=== PATIENT | male | born 1950 | race Caucasian/White ===

== ENCOUNTER 2018-12-27 02:06 | Inpatient (IN) | payer MEDICARE, OTHER ==
[2018-12-27] VITALS (15 sets, daily range): BP systolic 86–130; BP diastolic 42–73
[~2018-12-27] VITALS: Ht 162.6 cm; Wt 68.8 kg
[2018-12-27] MEDS ORDERED: DEXTROSE 50%-WATER 25 GM/50 ML SYRINGE IVP ONE ×3 (02:10→03:00)
[2018-12-27 02:42] LABS: BASOPHILS % (AUTO) 1.2 % (0.0-2.0); EOSINOPHILS % (AUTO) 5.7 % (1.0-6.0); HEMATOCRIT 34.5 % (41-53); HEMOGLOBIN 11.7 g/dL (13.5-17.5); LYMPHOCYTES # (AUTO) 0.8 K/uL (1.0-4.8); LYMPHOCYTES % (AUTO) 15.5 % (22.0-44.0); MEAN CORPUSCULAR HEMOGLOBIN 31.7 pg (26.0-34.0); MEAN CORPUSCULAR HGB CONC 33.8 G/dL (31.0-37.0); MEAN CORPUSCULAR VOLUME 94 fL (80-100); MONOCYTES # (AUTO) 0.5 K/uL (0.1-1.0); MONOCYTES % (AUTO) 10.7 % (2.0-9.0); NEUTROPHILS # (AUTO) 3.4 K/uL (1.8-7.7); NEUTROPHILS % (AUTO) 66.9 % (40.0-70.0); PLATELET COUNT (AUTO) 167 K/uL (150-450); RED BLOOD CELL COUNT(AUTO) 3.68 MIL/uL (4.50-5.90); RED CELL DISTRIBUTION WIDTH 16.3 % (11.5-14.5)
[2018-12-27 02:43] LABS: APPEARANCE,URINE CLEAR (CLEAR); GLUCOSE, URINE (UA) NEGATIVE (NEGATIVE); KETONES,URINE TRACE mg/dL (NEGATIVE); LEUKOCYTE ESTERASE ,URINE NEGATIVE (NEGATIVE); NITRATE,URINE NEGATIVE (NEGATIVE); OCCULT BLOOD,URINE NEGATIVE (NEGATIVE); PROTEIN,URINE SEE CONFIRM (NEGATIVE)
[2018-12-27 02:45] LABS: BILIRUBIN,URINE PRELIM. POSITIVE (NEGATIVE)
[2018-12-27] MEDS ORDERED: PIPERACILLIN/TAZO 3.375 GM/D5W 50 ML IV ONE (02:45)
[2018-12-27] MEDS ORDERED: VANCOMYCIN HCL 1 GM/D5% WATER 200 ML IV ONE (02:45)
[2018-12-27 02:52] LABS: SULFOSALICYLIC ACID,URINE 2+ (Negative)
[2018-12-27 02:54] LABS: INR 1.1 (0.9-1.1); PROTHROMBIN TIME 11.7 SEC (9.4-11.6)
[2018-12-27 02:59] LABS: LACTIC ACID 1.1 mmol/L (0.4-2.0)
[2018-12-27 03:02] LABS: RBC,URINE 0-2 /HPF (0-2)
[2018-12-27 03:03] LABS: BACTERIA,URINE Few /HPF (None Seen); SQUAMOUS EPITHELIAL CELL,UR Rare /LPF (None Seen)
[2018-12-27 03:03] LABS: BILIRUBIN,TOTAL 1.1 mg/dL (0.1-1.0); CALCIUM, TOTAL 8.4 mg/dL (8.8-10.5); CREATININE 3.35 mg/dL (0.60-1.30); POTASSIUM 3.4 mmol/L (3.5-5.1); TOTAL PROTEIN, SERUM 8.5 g/dL (6.4-8.2)
[2018-12-27 03:03] LABS: ABG A-A DIFF O2 245.6 mmHg (10-20.0); ABG CARBOXYHEMOGLOBIN 0.7 % (0.0-1.5); ABG HCO3 31.9 mmol/L (22.0-26.0); ABG METHEMOGLOBIN 0.2 % (0.0-1.5); ABG OXYGEN CONTENT 16.3 mL/dL (15.0-23.0); ABG OXYGEN SATURATION 99.5 % (95.0-98.0); ABG OXYHEMOGLOBIN 98.6 % (94.0-100.0); ABG PCO2 42 mmHg (35-45); ABG TOTAL HEMOGLOBIN 11.2 G/dL (12.0-18.0); PO2, ARTERIAL BG 284.1 mmHg (79.0-87.0); SOURCE, BLOOD GAS ARTERIAL; TEMPERATURE, FAHRENHEIT, BG 95.3 FAHREN (96.0-98.6)
[2018-12-27 03:05] LABS: O2 DEVICE,BLOOD GAS BIPAP (ROOM AIR); SITE, BLOOD GAS RT RADIAL
[2018-12-27 03:25] LABS: GLUCOSE,POINT OF CARE 195 MG/DL (70-110)
[2018-12-27 03:25] LABS: GLUCOSE,POINT OF CARE 303 MG/DL (70-110)
[2018-12-27 03:25] LABS: GLUCOSE,POINT OF CARE 154 MG/DL (70-110)
[2018-12-27] MEDS ORDERED: ONDANSETRON HCL 4 MG/2 ML VIAL IVP PRN (04:30)
[2018-12-27] MEDS ORDERED: ACETAMINOPHEN 325 MG TABLET PO PRN (04:30)
[2018-12-27] MEDS ORDERED: 0.9% SODIUM CHLORIDE 10 ML SYRINGE IVP PRN (04:30)
[2018-12-27] MEDS ORDERED: DEXTROSE 50%-WATER 25 GM/50 ML SYRINGE IVP PRN (06:30)
[2018-12-27] MEDS ORDERED: BISACODYL 10 MG RECTAL RECTAL SUPPOSITORY PR PRN (06:30)
[2018-12-27 06:41] LABS: GLUCOSE,POINT OF CARE 154 MG/DL (70-110)
[2018-12-27] MEDS: DOCUSATE SODIUM 100 MG CAPSULE PO SCH ×2 (09:00→21:02)
[2018-12-27] MEDS: FAMOTIDINE 20 MG TABLET PO SCH (09:51)
[2018-12-27] MEDS: HEPARIN SODIUM,PORCINE 5,000 UNITS/ML VIAL SQ SCH ×2 (09:51→21:02)
[2018-12-27] MEDS ORDERED: SODIUM CHLORIDE 0.9% 500 ML IV ONE ×2 (11:30→15:30)
[2018-12-27] MEDS: INSULIN LISPRO 100 UNITS/ML SQ PRN (12:49)
[2018-12-27] MEDS ORDERED: TRAZ-252 PO (15:33)
[2018-12-27] MEDS ORDERED: SACU1TAB PO (15:33)
[2018-12-27] MEDS ORDERED: SODI650T PO (15:33)
[2018-12-27] MEDS ORDERED: LEVO50 PO (15:33)
[2018-12-27] MEDS ORDERED: ASPI81TA39 PO (15:33)
[2018-12-27] MEDS ORDERED: OMEP20 PO (15:33)
[2018-12-27] MEDS: MIDODRINE HCL 5 MG TABLET PO SCH (16:18)
[2018-12-27] MEDS ORDERED: IOVERSOL 320 MG/ML 100 ML VIAL ONE (22:22)
[2018-12-27] MEDS ORDERED: SODIUM CHLORIDE 0.9% 100 ML ONE (22:23)
[2018-12-27] MEDS ORDERED: IOVERSOL 350 MG/ML 100 ML VIAL ONE (23:10)
[2018-12-27 23:31] LABS: GLUCOMETER DEV NAME(LOC) 5N.1; GLUCOSE,POINT OF CARE 177 MG/DL (70-110)
[2018-12-27 23:31] LABS: GLUCOMETER DEV NAME(LOC) 5N.1; GLUCOSE,POINT OF CARE 143 MG/DL (70-110)
[2018-12-27 23:31] LABS: GLUCOMETER DEV NAME(LOC) 5N.1; GLUCOSE,POINT OF CARE 157 MG/DL (70-110)
[2018-12-28] MEDS: MIDODRINE HCL 5 MG TABLET PO SCH ×3 (00:26→15:20)
[2018-12-28 04:36] VITALS: BP 119/58
[2018-12-28 07:52] VITALS: BP 103/47
[2018-12-28] MEDS: FAMOTIDINE 20 MG TABLET PO SCH (09:32)
[2018-12-28] MEDS: HEPARIN SODIUM,PORCINE 5,000 UNITS/ML VIAL SQ SCH ×2 (09:32→21:25)
[2018-12-28] MEDS: DOCUSATE SODIUM 100 MG CAPSULE PO SCH ×2 (09:33→21:27)
[2018-12-28 12:00] VITALS: BP 115/51
[2018-12-28 12:13] LABS: BASOPHILS % (AUTO) 0.9 % (0.0-2.0); EOSINOPHILS % (AUTO) 4.4 % (1.0-6.0); HEMATOCRIT 26.9 % (41-53); LYMPHOCYTES # (AUTO) 0.7 K/uL (1.0-4.8); LYMPHOCYTES % (AUTO) 10.3 % (22.0-44.0); MEAN CORPUSCULAR HEMOGLOBIN 31.7 pg (26.0-34.0); MEAN CORPUSCULAR HGB CONC 33.4 G/dL (31.0-37.0); MEAN CORPUSCULAR VOLUME 95 fL (80-100); MONOCYTES # (AUTO) 0.5 K/uL (0.1-1.0); NEUTROPHILS # (AUTO) 5.5 K/uL (1.8-7.7); NEUTROPHILS % (AUTO) 77.4 % (40.0-70.0); PLATELET COUNT (AUTO) 128 K/uL (150-450); RED BLOOD CELL COUNT(AUTO) 2.83 MIL/uL (4.50-5.90); RED CELL DISTRIBUTION WIDTH 16.3 % (11.5-14.5)
[2018-12-28 12:33] LABS: ALBUMIN 2.1 g/dL (3.4-5.0); CALCIUM, TOTAL 7.9 mg/dL (8.8-10.5); CREATININE 4.94 mg/dL (0.60-1.30); PHOSPHORUS 4.1 mg/dL (2.5-4.9); POTASSIUM 4.2 mmol/L (3.5-5.1)
[2018-12-28 15:53] VITALS: BP 122/63
[2018-12-28] MEDS: INSULIN LISPRO 100 UNITS/ML SQ PRN ×2 (17:44→21:34)
[2018-12-28 17:58] LABS: GLUCOMETER DEV NAME(LOC) 5S.1; GLUCOSE,POINT OF CARE 117 MG/DL (70-110)
[2018-12-28 20:35] VITALS: BP 125/54
[2018-12-29 00:21] VITALS: BP 113/53
[2018-12-29] MEDS: MIDODRINE HCL 5 MG TABLET PO SCH ×3 (00:32→15:21)
[2018-12-29 04:43] VITALS: BP 131/69
[2018-12-29 06:30] LABS: GLUCOMETER DEV NAME(LOC) 5N.2; GLUCOSE,POINT OF CARE 132 MG/DL (70-110)
[2018-12-29 06:30] LABS: GLUCOMETER DEV NAME(LOC) 5N.2; GLUCOSE,POINT OF CARE 83 MG/DL (70-110)
[2018-12-29 06:36] LABS: GLUCOMETER DEV NAME(LOC) 5N.1; GLUCOSE,POINT OF CARE 93 MG/DL (70-110)
[2018-12-29 07:37] VITALS: BP 126/53
[2018-12-29 07:46] LABS: BASOPHILS % (AUTO) 0.7 % (0.0-2.0); EOSINOPHILS % (AUTO) 4.6 % (1.0-6.0); HEMATOCRIT 26.9 % (41-53); HEMOGLOBIN 8.9 g/dL (13.5-17.5); LYMPHOCYTES # (AUTO) 0.5 K/uL (1.0-4.8); LYMPHOCYTES % (AUTO) 8.7 % (22.0-44.0); MEAN CORPUSCULAR HEMOGLOBIN 31.4 pg (26.0-34.0); MEAN CORPUSCULAR HGB CONC 32.9 G/dL (31.0-37.0); MEAN CORPUSCULAR VOLUME 96 fL (80-100); MONOCYTES # (AUTO) 0.5 K/uL (0.1-1.0); MONOCYTES % (AUTO) 9.2 % (2.0-9.0); NEUTROPHILS # (AUTO) 4.3 K/uL (1.8-7.7); NEUTROPHILS % (AUTO) 76.8 % (40.0-70.0); PLATELET COUNT (AUTO) 135 K/uL (150-450); RED BLOOD CELL COUNT(AUTO) 2.82 MIL/uL (4.50-5.90); RED CELL DISTRIBUTION WIDTH 16.4 % (11.5-14.5)
[2018-12-29 08:03] LABS: ALBUMIN 2.2 g/dL (3.4-5.0); CALCIUM, TOTAL 8.4 mg/dL (8.8-10.5); CREATININE 3.33 mg/dL (0.60-1.30); PHOSPHORUS 3.8 mg/dL (2.5-4.9); POTASSIUM 4.6 mmol/L (3.5-5.1)
[2018-12-29] MEDS: HEPARIN SODIUM,PORCINE 5,000 UNITS/ML VIAL SQ SCH ×2 (09:13→20:08)
[2018-12-29] MEDS: FAMOTIDINE 20 MG TABLET PO SCH (09:13)
[2018-12-29] MEDS: DOCUSATE SODIUM 100 MG CAPSULE PO SCH ×2 (09:13→20:08)
[2018-12-29 17:40] LABS: GLUCOMETER DEV NAME(LOC) 5S.1; GLUCOSE,POINT OF CARE 137 MG/DL (70-110)
[2018-12-29 20:06] VITALS: BP 135/69
[2018-12-29] MEDS: INSULIN LISPRO 100 UNITS/ML SQ PRN (22:26)
[2018-12-30] VITALS (7 sets, daily range): BP systolic 102–128; BP diastolic 52–67
[2018-12-30 00:21] LABS: GLUCOMETER DEV NAME(LOC) 5N.1; GLUCOSE,POINT OF CARE 237 MG/DL (70-110)
[2018-12-30] MEDS: FAMOTIDINE 20 MG TABLET PO SCH (08:36)
[2018-12-30] MEDS: HEPARIN SODIUM,PORCINE 5,000 UNITS/ML VIAL SQ SCH ×2 (08:36→20:08)
[2018-12-30] MEDS: DOCUSATE SODIUM 100 MG CAPSULE PO SCH ×2 (08:36→20:08)
[2018-12-30] MEDS: CARVEDILOL 3.125 MG TABLET PO SCH ×2 (15:28→20:08)
[2018-12-30] MEDS: INSULIN LISPRO 100 UNITS/ML SQ PRN (20:10)
[2018-12-31 04:49] VITALS: BP 119/64
[2018-12-31 05:53] LABS: GLUCOMETER DEV NAME(LOC) 5N.2; GLUCOSE,POINT OF CARE 90 MG/DL (70-110)
[2018-12-31 07:44] VITALS: BP 124/65
[2018-12-31] MEDS: CARVEDILOL 3.125 MG TABLET PO SCH ×2 (09:00→20:07)
[2018-12-31] MEDS: HEPARIN SODIUM,PORCINE 5,000 UNITS/ML VIAL SQ SCH ×2 (10:54→20:07)
[2018-12-31] MEDS: DOCUSATE SODIUM 100 MG CAPSULE PO SCH ×2 (10:54→20:07)
[2018-12-31] MEDS: FAMOTIDINE 20 MG TABLET PO SCH (10:54)
[2018-12-31 11:22] VITALS: BP 132/68
[2018-12-31 11:49] LABS: GLUCOMETER DEV NAME(LOC) 5S.1; GLUCOSE,POINT OF CARE 166 MG/DL (70-110)
[2018-12-31 11:49] LABS: GLUCOMETER DEV NAME(LOC) 5S.1; GLUCOSE,POINT OF CARE 105 MG/DL (70-110)
[2018-12-31] MEDS ORDERED: SODIUM CHLORIDE 0.9% 2,000 ML IV ONE (14:09)
[2018-12-31 15:10] VITALS: BP 122/71
[2018-12-31 19:57] LABS: GLUCOMETER DEV NAME(LOC) 5N.2; GLUCOSE,POINT OF CARE 96 MG/DL (70-110)
[2018-12-31 19:57] LABS: GLUCOMETER DEV NAME(LOC) 5N.2; GLUCOSE,POINT OF CARE 125 MG/DL (70-110)
[2018-12-31 19:58] VITALS: BP 128/67
[2018-12-31 21:38] LABS: GLUCOMETER DEV NAME(LOC) 5S.2A; GLUCOSE,POINT OF CARE 204 MG/DL (70-110)
[2018-12-31 23:42] VITALS: BP 115/59
[2019-01-01 03:31] LABS: GLUCOMETER DEV NAME(LOC) 5N.1; GLUCOSE,POINT OF CARE 114 MG/DL (70-110)
[2019-01-01 03:31] LABS: GLUCOMETER DEV NAME(LOC) 5N.1; GLUCOSE,POINT OF CARE 87 MG/DL (70-110)
[2019-01-01 03:31] LABS: GLUCOMETER DEV NAME(LOC) 5N.1; GLUCOSE,POINT OF CARE 137 MG/DL (70-110)
[2019-01-01 05:07] VITALS: BP 112/60
[2019-01-01 07:23] LABS: BASOPHILS % (AUTO) 1.1 % (0.0-2.0); EOSINOPHILS % (AUTO) 4.4 % (1.0-6.0); HEMATOCRIT 26.4 % (41-53); HEMOGLOBIN 8.7 g/dL (13.5-17.5); LYMPHOCYTES # (AUTO) 0.4 K/uL (1.0-4.8); LYMPHOCYTES % (AUTO) 12.4 % (22.0-44.0); MEAN CORPUSCULAR HEMOGLOBIN 31.6 pg (26.0-34.0); MEAN CORPUSCULAR HGB CONC 33.1 G/dL (31.0-37.0); MEAN CORPUSCULAR VOLUME 95 fL (80-100); MONOCYTES # (AUTO) 0.4 K/uL (0.1-1.0); MONOCYTES % (AUTO) 11.1 % (2.0-9.0); NEUTROPHILS # (AUTO) 2.3 K/uL (1.8-7.7); PLATELET COUNT (AUTO) 128 K/uL (150-450); RED BLOOD CELL COUNT(AUTO) 2.77 MIL/uL (4.50-5.90)
[2019-01-01 07:39] LABS: CALCIUM, TOTAL 8.3 mg/dL (8.8-10.5); CREATININE 3.56 mg/dL (0.60-1.30); POTASSIUM 4.8 mmol/L (3.5-5.1)
[2019-01-01 08:24] VITALS: BP 140/81
[2019-01-01] MEDS: HEPARIN SODIUM,PORCINE 5,000 UNITS/ML VIAL SQ SCH ×2 (09:00→20:17)
[2019-01-01] MEDS ORDERED: EPOETIN ALFA 10,000 UNITS/ML VIAL SQ ONE (09:00)
[2019-01-01] MEDS: DOCUSATE SODIUM 100 MG CAPSULE PO SCH ×2 (09:09→20:17)
[2019-01-01] MEDS: CARVEDILOL 3.125 MG TABLET PO SCH ×2 (09:12→20:17)
[2019-01-01] MEDS: FAMOTIDINE 20 MG TABLET PO SCH (09:12)
[2019-01-01 09:26] LABS: GLUCOMETER DEV NAME(LOC) 5N.2; GLUCOSE,POINT OF CARE 91 MG/DL (70-110)
[2019-01-01 11:59] VITALS: BP 120/78
[2019-01-01 20:11] VITALS: BP 119/58
[2019-01-01] MEDS: INSULIN LISPRO 100 UNITS/ML SQ PRN (20:15)
[2019-01-01 21:11] LABS: GLUCOMETER DEV NAME(LOC) 5N.2; GLUCOSE,POINT OF CARE 125 MG/DL (70-110)
[2019-01-02 00:01] LABS: GLUCOMETER DEV NAME(LOC) 5S.1; GLUCOSE,POINT OF CARE 104 MG/DL (70-110)
[2019-01-02 00:01] LABS: GLUCOMETER DEV NAME(LOC) 5N.1; GLUCOSE,POINT OF CARE 200 MG/DL (70-110)
[2019-01-02 00:11] VITALS: BP 112/54
[2019-01-02 05:03] VITALS: BP 121/59
[2019-01-02 06:52] LABS: BASOPHILS % (AUTO) 1.3 % (0.0-2.0); EOSINOPHILS % (AUTO) 4.9 % (1.0-6.0); HEMATOCRIT 27.8 % (41-53); HEMOGLOBIN 9.2 g/dL (13.5-17.5); LYMPHOCYTES # (AUTO) 0.5 K/uL (1.0-4.8); LYMPHOCYTES % (AUTO) 14.7 % (22.0-44.0); MEAN CORPUSCULAR HEMOGLOBIN 31.6 pg (26.0-34.0); MEAN CORPUSCULAR HGB CONC 32.9 G/dL (31.0-37.0); MEAN CORPUSCULAR VOLUME 96 fL (80-100); MONOCYTES # (AUTO) 0.4 K/uL (0.1-1.0); MONOCYTES % (AUTO) 11.5 % (2.0-9.0); NEUTROPHILS # (AUTO) 2.2 K/uL (1.8-7.7); NEUTROPHILS % (AUTO) 67.6 % (40.0-70.0); PLATELET COUNT (AUTO) 130 K/uL (150-450); RED CELL DISTRIBUTION WIDTH 16.1 % (11.5-14.5)
[2019-01-02 07:08] LABS: ALBUMIN 2.4 g/dL (3.4-5.0); CALCIUM, TOTAL 8.6 mg/dL (8.8-10.5); CREATININE 5.17 mg/dL (0.60-1.30); PHOSPHORUS 4.4 mg/dL (2.5-4.9); THYROID STIMULATING HORMONE 6.93 uIU/mL (0.36-3.74)
[2019-01-02 07:19] VITALS: BP 127/69
[2019-01-02] MEDS: DOCUSATE SODIUM 100 MG CAPSULE PO SCH ×2 (09:00→21:00)
[2019-01-02] MEDS: HEPARIN SODIUM,PORCINE 5,000 UNITS/ML VIAL SQ SCH ×2 (09:00→21:00)
[2019-01-02] MEDS: FAMOTIDINE 20 MG TABLET PO SCH (10:01)
[2019-01-02 11:24] VITALS: BP 129/66
[2019-01-02] MEDS: CARVEDILOL 3.125 MG TABLET PO SCH ×2 (11:42→21:29)
[2019-01-02 15:06] VITALS: BP 133/69
[2019-01-02] MEDS: INSULIN LISPRO 100 UNITS/ML SQ PRN ×2 (18:35→21:31)
[2019-01-02 19:46] LABS: GLUCOMETER DEV NAME(LOC) 5N.1; GLUCOSE,POINT OF CARE 144 MG/DL (70-110)
[2019-01-02 19:46] LABS: GLUCOMETER DEV NAME(LOC) 5N.1; GLUCOSE,POINT OF CARE 125 MG/DL (70-110)
[2019-01-02 20:21] LABS: GLUCOMETER DEV NAME(LOC) 5S.2A; GLUCOSE,POINT OF CARE 79 MG/DL (70-110)
[2019-01-02 20:59] VITALS: BP 119/57
[2019-01-03 00:37] VITALS: BP 118/68
[2019-01-03 04:10] VITALS: BP 125/60
[2019-01-03 05:46] LABS: GLUCOMETER DEV NAME(LOC) 5S.2A; GLUCOSE,POINT OF CARE 158 MG/DL (70-110)
[2019-01-03 06:58] LABS: BASOPHILS % (AUTO) 0.8 % (0.0-2.0); EOSINOPHILS % (AUTO) 3.6 % (1.0-6.0); HEMOGLOBIN 9.1 g/dL (13.5-17.5); LYMPHOCYTES # (AUTO) 0.4 K/uL (1.0-4.8); LYMPHOCYTES % (AUTO) 10.7 % (22.0-44.0); MEAN CORPUSCULAR HEMOGLOBIN 31.4 pg (26.0-34.0); MEAN CORPUSCULAR HGB CONC 32.6 G/dL (31.0-37.0); MEAN CORPUSCULAR VOLUME 96 fL (80-100); MONOCYTES # (AUTO) 0.4 K/uL (0.1-1.0); MONOCYTES % (AUTO) 11.5 % (2.0-9.0); NEUTROPHILS # (AUTO) 2.8 K/uL (1.8-7.7); NEUTROPHILS % (AUTO) 73.4 % (40.0-70.0); PLATELET COUNT (AUTO) 145 K/uL (150-450); RED CELL DISTRIBUTION WIDTH 16.4 % (11.5-14.5)
[2019-01-03 07:33] LABS: CALCIUM, TOTAL 8.8 mg/dL (8.8-10.5); CREATININE 3.78 mg/dL (0.60-1.30); MAGNESIUM 1.5 mg/dL (1.80-2.40); PHOSPHORUS 3.4 mg/dL (2.5-4.9); POTASSIUM 4.7 mmol/L (3.5-5.1); THYROID STIMULATING HORMONE 6.11 uIU/mL (0.36-3.74); TOTAL PROTEIN, SERUM 7.1 g/dL (6.4-8.2)
[2019-01-03 08:51] VITALS: BP 131/72
[2019-01-03] MEDS ORDERED: MAGNESIUM OXIDE 400 MG TABLET PO ONE (09:00)
[2019-01-03] MEDS: CARVEDILOL 3.125 MG TABLET PO SCH ×2 (09:07→20:33)
[2019-01-03] MEDS: FAMOTIDINE 20 MG TABLET PO SCH (09:07)
[2019-01-03] MEDS: HEPARIN SODIUM,PORCINE 5,000 UNITS/ML VIAL SQ SCH ×2 (09:07→20:33)
[2019-01-03] MEDS: DOCUSATE SODIUM 100 MG CAPSULE PO SCH ×2 (09:07→20:34)
[2019-01-03] MEDS: EPOETIN ALFA 10,000 UNITS/ML VIAL SQ SCH (09:09)
[2019-01-03 09:50] LABS: GLUCOMETER DEV NAME(LOC) 5S.1; GLUCOSE,POINT OF CARE 116 MG/DL (70-110)
[2019-01-03 11:33] LABS: SPECIMENTYPE,BODY FLUID PLEURAL
[2019-01-03 12:48] VITALS: BP 125/62
[2019-01-03 13:06] LABS: APPEARANCE,UNSPUN,BODY FLUID TURBID (CLEAR)
[2019-01-03 13:07] LABS: APPEARANCE,SPUN,BODY FLUID CLEAR (CLEAR); COLOR,BODY FLUID RED (LT YELLOW); TOTAL VOLUME,BODY FLUID 300 mL; WBC, BODY FLUID 23 /cu. mm.
[2019-01-03 13:09] LABS: BASOPHILS,BODY FLUID 0 %; EOSINOPHILS,BF (ANAL) 0 %; LYMPHOCYTES,BODY FLUID 75 %; MONOCYTES,BODY FLUID 0 %; NEUTROPHILS,BODY FLUID 25 %
[2019-01-03 13:11] LABS: ABG CARBOXYHEMOGLOBIN 0.4 % (0.0-1.5); ABG HCO3 23.2 mmol/L (22.0-26.0); ABG METHEMOGLOBIN 0.3 % (0.0-1.5); ABG OXYGEN SATURATION 98.7 % (95.0-98.0); ABG PCO2 34 mmHg (35-45); ABG PH 7.432 (7.35-7.450); O2 DEVICE,BLOOD GAS CANNULA (ROOM AIR); PO2, ARTERIAL BG 120.5 mmHg (79.0-87.0); SITE, BLOOD GAS RT RADIAL; SOURCE, BLOOD GAS ARTERIAL; TEMPERATURE, FAHRENHEIT, BG 97.9 FAHREN (96.0-98.6)
[2019-01-03 13:11] LABS: PH, BODY FLUID 9
[2019-01-03 15:54] VITALS: BP 122/61
[2019-01-03] MEDS ORDERED: ONDANSETRON HCL 4 MG/2 ML VIAL IVP PRN (19:45)
[2019-01-03 20:13] VITALS: BP 122/60
[2019-01-03] MEDS: DEXTRAN 70 0.1%/HYPROMELL 0.3% 0.9 ML OPHTHALMIC SOLUTION [PF] OU SCH (20:33)
[2019-01-03] MEDS: INSULIN LISPRO 100 UNITS/ML SQ PRN (20:52)
[2019-01-04] VITALS (7 sets, daily range): BP systolic 99–128; BP diastolic 49–65
[2019-01-04] MEDS ORDERED: SODIUM CHLORIDE 0.9% 2,000 ML IV ONE (06:37)
[2019-01-04] MEDS: DOCUSATE SODIUM 100 MG CAPSULE PO SCH ×2 (09:00→20:59)
[2019-01-04] MEDS: CARVEDILOL 3.125 MG TABLET PO SCH ×2 (09:00→20:49)
[2019-01-04] MEDS: FAMOTIDINE 20 MG TABLET PO SCH (09:05)
[2019-01-04] MEDS: DEXTRAN 70 0.1%/HYPROMELL 0.3% 0.9 ML OPHTHALMIC SOLUTION [PF] OU SCH ×2 (09:05→20:50)
[2019-01-04] MEDS: HEPARIN SODIUM,PORCINE 5,000 UNITS/ML VIAL SQ SCH ×2 (10:26→20:50)
[2019-01-04 12:12] LABS: GLUCOMETER DEV NAME(LOC) 5S.1; GLUCOSE,POINT OF CARE 107 MG/DL (70-110)
[2019-01-04 12:12] LABS: GLUCOMETER DEV NAME(LOC) 5S.1; GLUCOSE,POINT OF CARE 115 MG/DL (70-110)
[2019-01-04 12:12] LABS: GLUCOMETER DEV NAME(LOC) 5S.1; GLUCOSE,POINT OF CARE 93 MG/DL (70-110)
[2019-01-04 12:20] LABS: GLUCOMETER DEV NAME(LOC) 5S.2A; GLUCOSE,POINT OF CARE 114 MG/DL (70-110)
[2019-01-04 12:20] LABS: GLUCOMETER DEV NAME(LOC) 5S.2A; GLUCOSE,POINT OF CARE 175 MG/DL (70-110)
[2019-01-04] MEDS: INSULIN LISPRO 100 UNITS/ML SQ PRN (20:59)
[2019-01-05 04:53] VITALS: BP 115/57
[2019-01-05] MEDS: INSULIN LISPRO 100 UNITS/ML SQ PRN ×2 (06:12→13:15)
[2019-01-05 07:47] LABS: BASOPHILS % (AUTO) 1.2 % (0.0-2.0); EOSINOPHILS % (AUTO) 4.8 % (1.0-6.0); HEMOGLOBIN 10.5 g/dL (13.5-17.5); LYMPHOCYTES # (AUTO) 0.5 K/uL (1.0-4.8); LYMPHOCYTES % (AUTO) 14.7 % (22.0-44.0); MEAN CORPUSCULAR HEMOGLOBIN 32.8 pg (26.0-34.0); MEAN CORPUSCULAR HGB CONC 33.9 G/dL (31.0-37.0); MEAN CORPUSCULAR VOLUME 97 fL (80-100); MONOCYTES # (AUTO) 0.3 K/uL (0.1-1.0); MONOCYTES % (AUTO) 8.2 % (2.0-9.0); NEUTROPHILS # (AUTO) 2.6 K/uL (1.8-7.7); NEUTROPHILS % (AUTO) 71.1 % (40.0-70.0); PLATELET COUNT (AUTO) 158 K/uL (150-450); RED BLOOD CELL COUNT(AUTO) 3.21 MIL/uL (4.50-5.90); RED CELL DISTRIBUTION WIDTH 16.3 % (11.5-14.5)
[2019-01-05 08:11] VITALS: BP 129/55
[2019-01-05] MEDS: DOCUSATE SODIUM 100 MG CAPSULE PO SCH ×2 (09:00→21:00)
[2019-01-05] MEDS: FAMOTIDINE 20 MG TABLET PO SCH (09:21)
[2019-01-05] MEDS: HEPARIN SODIUM,PORCINE 5,000 UNITS/ML VIAL SQ SCH ×2 (09:21→21:00)
[2019-01-05] MEDS: CARVEDILOL 3.125 MG TABLET PO SCH ×2 (09:21→21:33)
[2019-01-05] MEDS: DEXTRAN 70 0.1%/HYPROMELL 0.3% 0.9 ML OPHTHALMIC SOLUTION [PF] OU SCH ×2 (09:21→21:33)
[2019-01-05] MEDS: ASPIRIN 81 MG CHEWABLE TABLET PO SCH (09:25)
[2019-01-05 12:13] VITALS: BP 125/60
[2019-01-05 16:30] VITALS: BP 103/52
[2019-01-05 16:41] LABS: GLUCOMETER DEV NAME(LOC) 5S.1; GLUCOSE,POINT OF CARE 189 MG/DL (70-110)
[2019-01-05 16:41] LABS: GLUCOMETER DEV NAME(LOC) 5S.1; GLUCOSE,POINT OF CARE 117 MG/DL (70-110)
[2019-01-05 16:41] LABS: GLUCOMETER DEV NAME(LOC) 5S.1; GLUCOSE,POINT OF CARE 158 MG/DL (70-110)
[2019-01-05 16:41] LABS: GLUCOMETER DEV NAME(LOC) 5S.1; GLUCOSE,POINT OF CARE 156 MG/DL (70-110)
[2019-01-05 19:43] VITALS: BP 117/55
[2019-01-05] MEDS: ATORVASTATIN CALCIUM 20 MG TABLET PO SCH (21:33)
[2019-01-05 23:30] LABS: GLUCOMETER DEV NAME(LOC) 5S.1; GLUCOSE,POINT OF CARE 65 MG/DL (70-110)
[2019-01-06 00:10] VITALS: BP 120/59
[2019-01-06 05:10] VITALS: BP 125/58
[2019-01-06] MEDS: LEVOTHYROXINE SODIUM 50 MCG TABLET PO SCH (06:30)
[2019-01-06 06:35] LABS: GLUCOMETER DEV NAME(LOC) 5S.1; GLUCOSE,POINT OF CARE 173 MG/DL (70-110)
[2019-01-06 06:43] LABS: BASOPHILS % (AUTO) 1.2 % (0.0-2.0); EOSINOPHILS % (AUTO) 5.5 % (1.0-6.0); HEMATOCRIT 31.6 % (41-53); HEMOGLOBIN 10.4 g/dL (13.5-17.5); LYMPHOCYTES # (AUTO) 0.4 K/uL (1.0-4.8); LYMPHOCYTES % (AUTO) 11.9 % (22.0-44.0); MEAN CORPUSCULAR HEMOGLOBIN 32.1 pg (26.0-34.0); MEAN CORPUSCULAR VOLUME 97 fL (80-100); MONOCYTES # (AUTO) 0.3 K/uL (0.1-1.0); MONOCYTES % (AUTO) 7.8 % (2.0-9.0); NEUTROPHILS # (AUTO) 2.8 K/uL (1.8-7.7); NEUTROPHILS % (AUTO) 73.6 % (40.0-70.0); PLATELET COUNT (AUTO) 157 K/uL (150-450); RED BLOOD CELL COUNT(AUTO) 3.26 MIL/uL (4.50-5.90); RED CELL DISTRIBUTION WIDTH 16.5 % (11.5-14.5)
[2019-01-06 07:09] LABS: ALBUMIN 2.6 g/dL (3.4-5.0); BILIRUBIN,TOTAL 0.6 mg/dL (0.1-1.0); CALCIUM, TOTAL 8.9 mg/dL (8.8-10.5); CREATININE 5.11 mg/dL (0.60-1.30); POTASSIUM 4.2 mmol/L (3.5-5.1); TOTAL PROTEIN, SERUM 7.5 g/dL (6.4-8.2)
[2019-01-06 07:39] VITALS: BP 143/64
[2019-01-06] MEDS ORDERED: SODIUM CHLORIDE 0.9% 500 ML IV ONE (08:57)
[2019-01-06] MEDS: ASPIRIN 81 MG CHEWABLE TABLET PO SCH (09:00)
[2019-01-06] MEDS: DEXTRAN 70 0.1%/HYPROMELL 0.3% 0.9 ML OPHTHALMIC SOLUTION [PF] OU SCH ×2 (09:00→23:33)
[2019-01-06] MEDS: DOCUSATE SODIUM 100 MG CAPSULE PO SCH ×3 (09:00→21:10)
[2019-01-06] MEDS: FAMOTIDINE 20 MG TABLET PO SCH (09:00)
[2019-01-06] MEDS ORDERED: SODIUM CHLORIDE 0.9% 1,000 ML IV ONE (09:00)
[2019-01-06] MEDS: EPOETIN ALFA 10,000 UNITS/ML VIAL SQ SCH (09:00)
[2019-01-06] MEDS: CARVEDILOL 3.125 MG TABLET PO SCH ×2 (09:00→21:10)
[2019-01-06] MEDS ORDERED: BUPIVACAINE HCL/PF 0.25% 30 ML VIAL ONE (09:34)
[2019-01-06] MEDS ORDERED: SODIUM CHLORIDE 0.9% 100 ML ONE (09:36)
[2019-01-06 09:43] LABS: ABG A-A DIFF O2 38.8 mmHg (10-20.0); ABG BASE EXCESS 2.5 mmol/L (-2.0-3.0); ABG CARBOXYHEMOGLOBIN 0.4 % (0.0-1.5); ABG HCO3 26.2 mmol/L (22.0-26.0); ABG METHEMOGLOBIN 0.2 % (0.0-1.5); ABG OXYGEN CONTENT 16.3 mL/dL (15.0-23.0); ABG OXYGEN SATURATION 97.9 % (95.0-98.0); ABG OXYHEMOGLOBIN 97.3 % (94.0-100.0); ABG PCO2 47 mmHg (35-45); ABG PH 7.385 (7.35-7.450); ABG TOTAL HEMOGLOBIN 11.8 G/dL (12.0-18.0); PO2, ARTERIAL BG 105.4 mmHg (79.0-87.0); SOURCE, BLOOD GAS ARTERIAL; TEMPERATURE, FAHRENHEIT, BG 98.6 FAHREN (96.0-98.6)
[2019-01-06] MEDS ORDERED: DOXYCYCLINE HYCLATE 100 MG/VIAL IPL ONE (09:45)
[2019-01-06 09:48] LABS: O2 DEVICE,BLOOD GAS CANNULA (ROOM AIR); SITE, BLOOD GAS ARTERIAL LINE
[2019-01-06] MEDS ORDERED: BUPIVACAINE/EPI/PF 0.5% 30 ML VIAL ONE (11:34)
[2019-01-06] MEDS ORDERED: 0.9% SODIUM CHLORIDE 5 ML NEB SOLUTION NEB ONE (13:34)
[2019-01-06] MEDS ORDERED: ALBUTEROL SULFATE 2.5 MG/0.5 ML NEB SOLUTION NEB ONE (13:34)
[2019-01-06 16:00] VITALS: BP 127/71
[2019-01-06] MEDS: MORPHINE SULFATE 2 MG/ML SYRINGE IVP PRN (16:26)
[2019-01-06] MEDS: INSULIN LISPRO 100 UNITS/ML SQ PRN ×2 (17:25→21:27)
[2019-01-06] MEDS ORDERED: SODIUM CHLORIDE 0.9% 250 ML IV ONE (18:42)
[2019-01-06] MEDS: CeFAZolin 1 GM/DEXTROSE 50 ML IV SCH (19:44)
[2019-01-06] MEDS: OXYGEN THERAPY IH SCH (19:44)
[2019-01-06 20:00] VITALS: BP 131/67
[2019-01-06] MEDS: ATORVASTATIN CALCIUM 20 MG TABLET PO SCH (21:10)
[2019-01-06 22:30] LABS: GLUCOSE,POINT OF CARE 181 MG/DL (70-110)
[2019-01-07 00:04] VITALS: BP 113/57
[2019-01-07] MEDS: CeFAZolin 1 GM/DEXTROSE 50 ML IV SCH ×2 (02:18→10:13)
[2019-01-07 04:39] VITALS: BP 108/54
[2019-01-07 05:00] LABS: BASOPHILS % (AUTO) 0.9 % (0.0-2.0); HEMATOCRIT 30.2 % (41-53); HEMOGLOBIN 9.8 g/dL (13.5-17.5); LYMPHOCYTES # (AUTO) 0.5 K/uL (1.0-4.8); LYMPHOCYTES % (AUTO) 6.9 % (22.0-44.0); MEAN CORPUSCULAR HEMOGLOBIN 31.7 pg (26.0-34.0); MEAN CORPUSCULAR HGB CONC 32.5 G/dL (31.0-37.0); MEAN CORPUSCULAR VOLUME 98 fL (80-100); MONOCYTES # (AUTO) 0.4 K/uL (0.1-1.0); MONOCYTES % (AUTO) 5.4 % (2.0-9.0); NEUTROPHILS # (AUTO) 5.8 K/uL (1.8-7.7); NEUTROPHILS % (AUTO) 84.8 % (40.0-70.0); PLATELET COUNT (AUTO) 147 K/uL (150-450); RED BLOOD CELL COUNT(AUTO) 3.09 MIL/uL (4.50-5.90); RED CELL DISTRIBUTION WIDTH 16.5 % (11.5-14.5)
[2019-01-07 05:14] LABS: ALBUMIN 2.7 g/dL (3.4-5.0); BILIRUBIN,TOTAL 0.5 mg/dL (0.1-1.0); CALCIUM, TOTAL 8.9 mg/dL (8.8-10.5); CREATININE 5.99 mg/dL (0.60-1.30); POTASSIUM 5.4 mmol/L (3.5-5.1); TOTAL PROTEIN, SERUM 7.4 g/dL (6.4-8.2)
[2019-01-07] MEDS ORDERED: ROCURONIUM BROMIDE 10 MG/ML 5 ML VIAL IVP ONE (06:01)
[2019-01-07] MEDS ORDERED: KETAMINE HCL 50 MG/ML 10 ML VIAL IVP ONE (06:01)
[2019-01-07] MEDS ORDERED: 0.9% SODIUM CHLORIDE 10 ML VIAL IVP ONE (06:01)
[2019-01-07] MEDS ORDERED: LIDOCAINE/PF 2% 5 ML VIAL IM ONE (06:01)
[2019-01-07] MEDS ORDERED: PROPOFOL 1% 20 ML VIAL IVP ONE (06:01)
[2019-01-07] MEDS ORDERED: FentaNYL CITRATE-PF 100 MCG/2 ML VIAL IVP ONE (06:01)
[2019-01-07] MEDS: LEVOTHYROXINE SODIUM 50 MCG TABLET PO SCH (06:18)
[2019-01-07 08:00] VITALS: BP 106/80
[2019-01-07 08:00] LABS: GLUCOSE,POINT OF CARE 123 MG/DL (70-110)
[2019-01-07] MEDS: OXYGEN THERAPY IH SCH ×2 (08:00→21:15)
[2019-01-07 08:15] LABS: GLUCOSE,POINT OF CARE 188 MG/DL (70-110)
[2019-01-07] MEDS: FAMOTIDINE 20 MG TABLET PO SCH (08:43)
[2019-01-07] MEDS: CARVEDILOL 3.125 MG TABLET PO SCH ×2 (08:43→21:16)
[2019-01-07] MEDS: ACETAMINOPHEN 325 MG TABLET PO PRN ×2 (08:43→19:46)
[2019-01-07] MEDS: DOCUSATE SODIUM 100 MG CAPSULE PO SCH ×2 (08:43→21:15)
[2019-01-07] MEDS: ASPIRIN 81 MG CHEWABLE TABLET PO SCH (08:43)
[2019-01-07] MEDS: DEXTRAN 70 0.1%/HYPROMELL 0.3% 0.9 ML OPHTHALMIC SOLUTION [PF] OU SCH ×2 (10:11→21:16)
[2019-01-07 12:00] VITALS: BP 115/60
[2019-01-07] MEDS: INSULIN LISPRO 100 UNITS/ML SQ PRN ×2 (12:04→19:10)
[2019-01-07] MEDS ORDERED: RAPID SEQUENCE KIT [RSI] 1 EACH KIT ONE (12:38)
[2019-01-07 15:54] VITALS: BP 115/58
[2019-01-07 20:07] VITALS: BP 123/46
[2019-01-07] MEDS: ATORVASTATIN CALCIUM 20 MG TABLET PO SCH (21:15)
[2019-01-07 22:48] LABS: GLUCOSE,POINT OF CARE 165 MG/DL (70-110)
[2019-01-08 00:09] VITALS: BP 115/61
[2019-01-08 04:15] VITALS: BP 114/63
[2019-01-08] MEDS: MORPHINE SULFATE 2 MG/ML SYRINGE IVP PRN ×2 (06:12→13:11)
[2019-01-08] MEDS: LEVOTHYROXINE SODIUM 50 MCG TABLET PO SCH (06:18)
[2019-01-08 08:03] VITALS: BP 125/62
[2019-01-08 08:11] LABS: GLUCOMETER DEV NAME(LOC) 5S.1; GLUCOSE,POINT OF CARE 133 MG/DL (70-110)
[2019-01-08] MEDS: DEXTRAN 70 0.1%/HYPROMELL 0.3% 0.9 ML OPHTHALMIC SOLUTION [PF] OU SCH ×2 (09:40→21:26)
[2019-01-08] MEDS: FAMOTIDINE 20 MG TABLET PO SCH (09:40)
[2019-01-08] MEDS: ASPIRIN 81 MG CHEWABLE TABLET PO SCH (09:40)
[2019-01-08] MEDS: CARVEDILOL 3.125 MG TABLET PO SCH ×2 (09:40→21:26)
[2019-01-08] MEDS: EPOETIN ALFA 10,000 UNITS/ML VIAL SQ SCH (09:41)
[2019-01-08] MEDS: DOCUSATE SODIUM 100 MG CAPSULE PO SCH ×2 (09:44→21:26)
[2019-01-08] MEDS: OXYGEN THERAPY IH SCH (09:45)
[2019-01-08 11:29] VITALS: BP 115/51
[2019-01-08 12:02] LABS: GLUCOMETER DEV NAME(LOC) 5S.2A; GLUCOSE,POINT OF CARE 123 MG/DL (70-110)
[2019-01-08 12:02] LABS: GLUCOMETER DEV NAME(LOC) 5S.2A; GLUCOSE,POINT OF CARE 92 MG/DL (70-110)
[2019-01-08 12:02] LABS: GLUCOMETER DEV NAME(LOC) 5S.2A; GLUCOSE,POINT OF CARE 179 MG/DL (70-110)
[2019-01-08 15:14] VITALS: BP 98/55
[2019-01-08 18:05] LABS: GLUCOMETER DEV NAME(LOC) 5S.1; GLUCOSE,POINT OF CARE 130 MG/DL (70-110)
[2019-01-08 20:15] VITALS: BP 137/51
[2019-01-08] MEDS: ATORVASTATIN CALCIUM 20 MG TABLET PO SCH (21:26)
[2019-01-08] MEDS: INSULIN LISPRO 100 UNITS/ML SQ PRN (21:31)
[2019-01-09] VITALS (15 sets, daily range): BP systolic 103–176; BP diastolic 38–89
[2019-01-09] MEDS: LEVOTHYROXINE SODIUM 50 MCG TABLET PO SCH (05:44)
[2019-01-09 07:24] LABS: BASOPHILS % (AUTO) 0.7 % (0.0-2.0); EOSINOPHILS % (AUTO) 3.8 % (1.0-6.0); HEMATOCRIT 25.8 % (41-53); HEMOGLOBIN 8.8 g/dL (13.5-17.5); LYMPHOCYTES # (AUTO) 0.5 K/uL (1.0-4.8); LYMPHOCYTES % (AUTO) 11.2 % (22.0-44.0); MEAN CORPUSCULAR HEMOGLOBIN 32.9 pg (26.0-34.0); MEAN CORPUSCULAR HGB CONC 34.1 G/dL (31.0-37.0); MEAN CORPUSCULAR VOLUME 96 fL (80-100); MONOCYTES # (AUTO) 0.4 K/uL (0.1-1.0); MONOCYTES % (AUTO) 8.9 % (2.0-9.0); NEUTROPHILS # (AUTO) 3.7 K/uL (1.8-7.7); NEUTROPHILS % (AUTO) 75.4 % (40.0-70.0); RED BLOOD CELL COUNT(AUTO) 2.67 MIL/uL (4.50-5.90); RED CELL DISTRIBUTION WIDTH 16.6 % (11.5-14.5)
[2019-01-09 07:33] LABS: INR 1.1 (0.9-1.1); PROTHROMBIN TIME 11.2 SEC (9.4-11.6)
[2019-01-09 07:42] LABS: CALCIUM, TOTAL 8.2 mg/dL (8.8-10.5); CREATININE 5.41 mg/dL (0.60-1.30); MAGNESIUM 1.6 mg/dL (1.80-2.40); POTASSIUM 4.6 mmol/L (3.5-5.1)
[2019-01-09] MEDS: OXYGEN THERAPY IH SCH (08:00)
[2019-01-09] MEDS ORDERED: MAGNESIUM SULFATE 2 GM/WATER 50 ML IV ONE (09:15)
[2019-01-09 09:16] LABS: GLUCOMETER DEV NAME(LOC) 5S.1; GLUCOSE,POINT OF CARE 160 MG/DL (70-110)
[2019-01-09 09:16] LABS: GLUCOMETER DEV NAME(LOC) 5S.1; GLUCOSE,POINT OF CARE 106 MG/DL (70-110)
[2019-01-09 09:16] LABS: GLUCOMETER DEV NAME(LOC) 5S.1; GLUCOSE,POINT OF CARE 150 MG/DL (70-110)
[2019-01-09] MEDS: CARVEDILOL 3.125 MG TABLET PO SCH ×2 (09:30→17:45)
[2019-01-09] MEDS: FAMOTIDINE 20 MG TABLET PO SCH (09:30)
[2019-01-09] MEDS: DOCUSATE SODIUM 100 MG CAPSULE PO SCH ×2 (09:30→20:40)
[2019-01-09] MEDS: ASPIRIN 81 MG CHEWABLE TABLET PO SCH (09:30)
[2019-01-09] MEDS: DEXTRAN 70 0.1%/HYPROMELL 0.3% 0.9 ML OPHTHALMIC SOLUTION [PF] OU SCH ×2 (09:31→20:40)
[2019-01-09] MEDS ORDERED: SODIUM CHLORIDE 0.9% 100 ML ONE (09:57)
[2019-01-09 10:26] LABS: PLATELET COUNT (AUTO) 129 K/uL (150-450)
[2019-01-09] MEDS ORDERED: DESMOPRESSIN ACETATE 20 MCG in SODIUM CHLORIDE 0.9% 50 ML IV ONE (12:00)
[2019-01-09] MEDS ORDERED: LIDOCAINE/PF 1% 30 ML VIAL ONE ×2 (12:40→14:42)
[2019-01-09] MEDS ORDERED: IOHEXOL 300 MG/ML 50 ML VIAL ONE (12:40)
[2019-01-09] MEDS ORDERED: LIDOCAINE 1% 30 ML/SOD BICARB 8.4% 4 ML SQ ONE (14:15)
[2019-01-09] MEDS ORDERED: BUPIVACAINE LIPOSOME/PF 1.3%-13.3MG/ML SUSPENSION 10 ML VIAL INJ ONE (14:15)
[2019-01-09] MEDS ORDERED: IOHEXOL 300 MG/ML 50 ML VIAL IVP ONE (15:00)
[2019-01-09] MEDS: INSULIN LISPRO 100 UNITS/ML SQ PRN (18:36)
[2019-01-09] MEDS: CeFAZolin 1 GM/DEXTROSE 50 ML IV SCH (20:40)
[2019-01-09] MEDS: ATORVASTATIN CALCIUM 20 MG TABLET PO SCH (20:40)
[2019-01-10] MEDS: CeFAZolin 1 GM/DEXTROSE 50 ML IV SCH ×3 (01:08→17:47)
[2019-01-10 04:10] VITALS: BP 143/75
[2019-01-10] MEDS: LEVOTHYROXINE SODIUM 50 MCG TABLET PO SCH (06:10)
[2019-01-10] MEDS: MORPHINE SULFATE 2 MG/ML SYRINGE IVP PRN (06:11)
[2019-01-10] MEDS: INSULIN LISPRO 100 UNITS/ML SQ PRN ×3 (06:26→21:13)
[2019-01-10 07:06] LABS: BASOPHILS % (AUTO) 0.6 % (0.0-2.0); EOSINOPHILS % (AUTO) 4.9 % (1.0-6.0); HEMATOCRIT 25.7 % (41-53); HEMOGLOBIN 8.6 g/dL (13.5-17.5); LYMPHOCYTES # (AUTO) 0.4 K/uL (1.0-4.8); LYMPHOCYTES % (AUTO) 8.2 % (22.0-44.0); MEAN CORPUSCULAR HEMOGLOBIN 32.4 pg (26.0-34.0); MEAN CORPUSCULAR HGB CONC 33.4 G/dL (31.0-37.0); MEAN CORPUSCULAR VOLUME 97 fL (80-100); MONOCYTES # (AUTO) 0.4 K/uL (0.1-1.0); MONOCYTES % (AUTO) 9.2 % (2.0-9.0); NEUTROPHILS # (AUTO) 3.3 K/uL (1.8-7.7); NEUTROPHILS % (AUTO) 77.1 % (40.0-70.0); PLATELET COUNT (AUTO) 123 K/uL (150-450); RED BLOOD CELL COUNT(AUTO) 2.65 MIL/uL (4.50-5.90); RED CELL DISTRIBUTION WIDTH 16.9 % (11.5-14.5)
[2019-01-10 07:15] LABS: ALBUMIN 2.3 g/dL (3.4-5.0); CALCIUM, TOTAL 8.3 mg/dL (8.8-10.5); CREATININE 6.36 mg/dL (0.60-1.30); MAGNESIUM 2.3 mg/dL (1.80-2.40); PHOSPHORUS 4.2 mg/dL (2.5-4.9); POTASSIUM 5.3 mmol/L (3.5-5.1)
[2019-01-10] MEDS ORDERED: SODIUM CHLORIDE 0.9% 1,000 ML IV ONE (07:57)
[2019-01-10 08:16] VITALS: BP 154/85
[2019-01-10 10:45] LABS: GLUCOMETER DEV NAME(LOC) 5S.1; GLUCOSE,POINT OF CARE 171 MG/DL (70-110)
[2019-01-10 10:45] LABS: GLUCOMETER DEV NAME(LOC) 5S.1; GLUCOSE,POINT OF CARE 160 MG/DL (70-110)
[2019-01-10 10:45] LABS: GLUCOMETER DEV NAME(LOC) 5S.1; GLUCOSE,POINT OF CARE 102 MG/DL (70-110)
[2019-01-10 10:45] LABS: GLUCOMETER DEV NAME(LOC) 5S.1; GLUCOSE,POINT OF CARE 178 MG/DL (70-110)
[2019-01-10] MEDS: DEXTRAN 70 0.1%/HYPROMELL 0.3% 0.9 ML OPHTHALMIC SOLUTION [PF] OU SCH ×2 (15:06→21:13)
[2019-01-10] MEDS: ASPIRIN 81 MG CHEWABLE TABLET PO SCH (15:07)
[2019-01-10] MEDS: CARVEDILOL 3.125 MG TABLET PO SCH ×2 (15:07→21:13)
[2019-01-10] MEDS: DOCUSATE SODIUM 100 MG CAPSULE PO SCH ×2 (15:07→21:13)
[2019-01-10] MEDS: FAMOTIDINE 20 MG TABLET PO SCH (15:07)
[2019-01-10] MEDS: ACETAMINOPHEN 325 MG TABLET PO PRN (15:09)
[2019-01-10] MEDS: EPOETIN ALFA 10,000 UNITS/ML VIAL SQ SCH (15:13)
[2019-01-10 15:15] VITALS: BP 150/76
[2019-01-10 19:33] VITALS: BP 150/73
[2019-01-10] MEDS: ATORVASTATIN CALCIUM 20 MG TABLET PO SCH (21:13)
[2019-01-10 21:26] LABS: GLUCOMETER DEV NAME(LOC) 5S.1; GLUCOSE,POINT OF CARE 119 MG/DL (70-110)
[2019-01-10 21:26] LABS: GLUCOMETER DEV NAME(LOC) 5S.1; GLUCOSE,POINT OF CARE 102 MG/DL (70-110)
[2019-01-10 21:26] LABS: GLUCOMETER DEV NAME(LOC) 5S.1; GLUCOSE,POINT OF CARE 161 MG/DL (70-110)
[2019-01-10 23:44] VITALS: BP 156/87
[2019-01-11 05:05] VITALS: BP 152/74
[2019-01-11] MEDS: LEVOTHYROXINE SODIUM 50 MCG TABLET PO SCH (06:50)
[2019-01-11 07:05] LABS: GLUCOMETER DEV NAME(LOC) 5S.1; GLUCOSE,POINT OF CARE 110 MG/DL (70-110)
[2019-01-11] MEDS ORDERED: SODIUM CHLORIDE 0.9% 2,000 ML IV ONE (08:51)
[2019-01-11] MEDS: DOCUSATE SODIUM 100 MG CAPSULE PO SCH ×2 (09:00→20:50)
[2019-01-11] MEDS: ISOSORB DINIT/HYDRALAZINE HCL 20-37.5 MG TABLET PO SCH ×3 (09:00→20:50)
[2019-01-11] MEDS: CARVEDILOL 3.125 MG TABLET PO SCH ×2 (09:00→20:50)
[2019-01-11 09:04] VITALS: BP 133/55
[2019-01-11 09:43] LABS: BASOPHILS % (AUTO) 0.9 % (0.0-2.0); EOSINOPHILS % (AUTO) 4.1 % (1.0-6.0); HEMATOCRIT 26.6 % (41-53); HEMOGLOBIN 8.9 g/dL (13.5-17.5); LYMPHOCYTES # (AUTO) 0.4 K/uL (1.0-4.8); LYMPHOCYTES % (AUTO) 8.7 % (22.0-44.0); MEAN CORPUSCULAR HEMOGLOBIN 32.7 pg (26.0-34.0); MEAN CORPUSCULAR HGB CONC 33.5 G/dL (31.0-37.0); MEAN CORPUSCULAR VOLUME 98 fL (80-100); MONOCYTES # (AUTO) 0.5 K/uL (0.1-1.0); MONOCYTES % (AUTO) 10.1 % (2.0-9.0); NEUTROPHILS # (AUTO) 3.5 K/uL (1.8-7.7); NEUTROPHILS % (AUTO) 76.2 % (40.0-70.0); PLATELET COUNT (AUTO) 128 K/uL (150-450); RED BLOOD CELL COUNT(AUTO) 2.73 MIL/uL (4.50-5.90); RED CELL DISTRIBUTION WIDTH 17.2 % (11.5-14.5)
[2019-01-11 09:59] LABS: CALCIUM, TOTAL 8.6 mg/dL (8.8-10.5); CREATININE 4.27 mg/dL (0.60-1.30); POTASSIUM 4.1 mmol/L (3.5-5.1)
[2019-01-11] MEDS ORDERED: FentaNYL CITRATE-PF 100 MCG/2 ML VIAL IVP ONE (12:00)
[2019-01-11] MEDS ORDERED: KETAMINE HCL 50 MG/ML 10 ML VIAL IVP ONE (12:00)
[2019-01-11 12:07] VITALS: BP 109/73
[2019-01-11] MEDS: DEXTRAN 70 0.1%/HYPROMELL 0.3% 0.9 ML OPHTHALMIC SOLUTION [PF] OU SCH ×2 (12:15→20:50)
[2019-01-11] MEDS: INSULIN LISPRO 100 UNITS/ML SQ PRN ×2 (12:15→18:30)
[2019-01-11] MEDS: ASPIRIN 81 MG CHEWABLE TABLET PO SCH (12:15)
[2019-01-11] MEDS: FAMOTIDINE 20 MG TABLET PO SCH (12:16)
[2019-01-11 16:13] VITALS: BP 121/35
[2019-01-11 16:44] VITALS: BP 100/64
[2019-01-11 20:16] LABS: GLUCOMETER DEV NAME(LOC) 5S.1; GLUCOSE,POINT OF CARE 145 MG/DL (70-110)
[2019-01-11] MEDS: ATORVASTATIN CALCIUM 20 MG TABLET PO SCH (20:50)
[2019-01-11 21:03] VITALS: BP 104/72
[2019-01-12 00:31] VITALS: BP 116/33
[2019-01-12 04:11] LABS: GLUCOMETER DEV NAME(LOC) 5S.2A; GLUCOSE,POINT OF CARE 161 MG/DL (70-110)
[2019-01-12 04:11] LABS: GLUCOMETER DEV NAME(LOC) 5N.1; GLUCOSE,POINT OF CARE 117 MG/DL (70-110)
[2019-01-12] MEDS: LEVOTHYROXINE SODIUM 50 MCG TABLET PO SCH (06:30)
[2019-01-12 06:31] VITALS: BP 109/43
[2019-01-12 07:44] VITALS: BP 149/70
[2019-01-12 08:21] LABS: GLUCOMETER DEV NAME(LOC) 5N.1; GLUCOSE,POINT OF CARE 126 MG/DL (70-110)
[2019-01-12] MEDS: ASPIRIN 81 MG CHEWABLE TABLET PO SCH (09:29)
[2019-01-12] MEDS: DEXTRAN 70 0.1%/HYPROMELL 0.3% 0.9 ML OPHTHALMIC SOLUTION [PF] OU SCH (09:29)
[2019-01-12] MEDS: ISOSORB DINIT/HYDRALAZINE HCL 20-37.5 MG TABLET PO SCH ×2 (09:29→16:00)
[2019-01-12] MEDS: FAMOTIDINE 20 MG TABLET PO SCH (09:29)
[2019-01-12] MEDS: DOCUSATE SODIUM 100 MG CAPSULE PO SCH (09:29)
[2019-01-12] MEDS: CARVEDILOL 3.125 MG TABLET PO SCH (09:32)
[2019-01-12 11:34] VITALS: BP 151/60
[2019-01-12] MEDS: INSULIN LISPRO 100 UNITS/ML SQ PRN ×2 (11:36→17:37)
[2019-01-12 15:35] VITALS: BP 158/74
[2019-01-12 16:16] LABS: GLUCOMETER DEV NAME(LOC) 5N.1; GLUCOSE,POINT OF CARE 177 MG/DL (70-110)
[2019-01-12 20:17] LABS: GLUCOMETER DEV NAME(LOC) 5N.1; GLUCOSE,POINT OF CARE 158 MG/DL (70-110)
== END 2019-01-12 18:10 | DRG 226 ==
LOC: EMS 02:07 → ICU 06:00 → 5S 08:30 → ICU 01-06 14:20 → 5S 01-07 15:20
PROVIDERS: ADMIT Internal Medicine; ATTEND Internal Medicine
PROC: 5A09357 Assistance with Respiratory Ventilation, Less than 24 Consecutive Hours, Continuous Positive Airway Pressure (ICD-10-PCS; 2018-12-27)
PROC: 5A1D70Z Performance of Urinary Filtration, Intermittent, Less than 6 Hours Per Day (ICD-10-PCS; 2018-12-28)
PROC: 5A1D70Z Performance of Urinary Filtration, Intermittent, Less than 6 Hours Per Day (ICD-10-PCS; 2018-12-31)
PROC: 5A1D70Z Performance of Urinary Filtration, Intermittent, Less than 6 Hours Per Day (ICD-10-PCS; 2019-01-02)
PROC: 5A1D70Z Performance of Urinary Filtration, Intermittent, Less than 6 Hours Per Day (ICD-10-PCS; 2019-01-04)
PROC: 0BNF4ZZ Release Right Lower Lung Lobe, Percutaneous Endoscopic Approach (ICD-10-PCS; 2019-01-06)
PROC: 0W993ZZ Drainage of Right Pleural Cavity, Percutaneous Approach (ICD-10-PCS; 2019-01-06)
PROC: 0BBN4ZX Excision of Right Pleura, Percutaneous Endoscopic Approach, Diagnostic (ICD-10-PCS; 2019-01-06)
PROC: 3E0L4GC Introduction of Other Therapeutic Substance into Pleural Cavity, Percutaneous Endoscopic Approach (ICD-10-PCS; 2019-01-06)
PROC: 0WC94ZZ Extirpation of Matter from Right Pleural Cavity, Percutaneous Endoscopic Approach (ICD-10-PCS; 2019-01-06)
PROC: 0W994ZZ Drainage of Right Pleural Cavity, Percutaneous Endoscopic Approach (ICD-10-PCS; principal; 2019-01-06 10:00)
PROC: 5A1D70Z Performance of Urinary Filtration, Intermittent, Less than 6 Hours Per Day (ICD-10-PCS; 2019-01-07)
PROC: 5A1D70Z Performance of Urinary Filtration, Intermittent, Less than 6 Hours Per Day (ICD-10-PCS; 2019-01-08)
PROC: 0JH60PZ Insertion of Cardiac Rhythm Related Device into Chest Subcutaneous Tissue and Fascia, Open Approach (ICD-10-PCS; 2019-01-09)
PROC: 0JH608Z Insertion of Defibrillator Generator into Chest Subcutaneous Tissue and Fascia, Open Approach (ICD-10-PCS; 2019-01-09)
PROC: 02HK3KZ Insertion of Defibrillator Lead into Right Ventricle, Percutaneous Approach (ICD-10-PCS; 2019-01-09)
PROC: 02H63KZ Insertion of Defibrillator Lead into Right Atrium, Percutaneous Approach (ICD-10-PCS; 2019-01-09)
PROC: B51MYZZ Fluoroscopy of Right Upper Extremity Veins using Other Contrast (ICD-10-PCS; 2019-01-09)
PROC: 5A1D70Z Performance of Urinary Filtration, Intermittent, Less than 6 Hours Per Day (ICD-10-PCS; 2019-01-10)
DX: I13.2 Hypertensive heart and chronic kidney disease with heart failure and with stage 5 chronic kidney disease, or end stage renal disease (principal); I50.23 Acute on chronic systolic (congestive) heart failure; E43 Unspecified severe protein-calorie malnutrition; J96.01 Acute respiratory failure with hypoxia; N18.6 End stage renal disease; E87.1 Hypo-osmolality and hyponatremia; G93.40 Encephalopathy, unspecified; J91.8 Pleural effusion in other conditions classified elsewhere; E87.2 Acidosis; N25.81 Secondary hyperparathyroidism of renal origin; E11.649 Type 2 diabetes mellitus with hypoglycemia without coma; I42.0 Dilated cardiomyopathy; E11.22 Type 2 diabetes mellitus with diabetic chronic kidney disease; Z99.2 Dependence on renal dialysis; E11.40 Type 2 diabetes mellitus with diabetic neuropathy, unspecified; E11.319 Type 2 diabetes mellitus with unspecified diabetic retinopathy without macular edema; I25.10 Atherosclerotic heart disease of native coronary artery without angina pectoris; D63.1 Anemia in chronic kidney disease; E03.9 Hypothyroidism, unspecified; E78.5 Hyperlipidemia, unspecified; I25.5 Ischemic cardiomyopathy; R62.7 Adult failure to thrive; E83.51 Hypocalcemia; E83.39 Other disorders of phosphorus metabolism; E11.51 Type 2 diabetes mellitus with diabetic peripheral angiopathy without gangrene; E11.65 Type 2 diabetes mellitus with hyperglycemia; F32.9 Major depressive disorder, single episode, unspecified; K21.9 Gastro-esophageal reflux disease without esophagitis; Z68.26 Body mass index [BMI] 26.0-26.9, adult; Z79.4 Long term (current) use of insulin; Z89.421 Acquired absence of other right toe(s); Z79.82 Long term (current) use of aspirin
CPT/HCPCS: 32555; 33249; 36005; 36600; 71250; 71275; 76000; 76942; 82465; 82805; 82945; 83605; 83615; 83735; 83986; 84100; 84155; 84157; 84443; 87015; 87040; 87070; 87081; 87101; 87205; 87206; 87252; 87340; 88108; 88305; 88313; 89051; 93005; 93306; 94660; 97116; 97163; 97167; 97530; 97535; G0238; G0378; J0690; J0885; J1644; J2270; J2405; J2543; J2597; J2704; J3010; J3370; J3475; J3490; J7030; J7040; J7050; Q9967